=== PATIENT | female | born 1945 | race Two or more races ===

== ENCOUNTER 2017-02-24 20:31 | Inpatient (IN) | payer MEDICARE ==
[~2017-02-24] VITALS: Ht 170.2 cm; Wt 92.1 kg
[2017-02-24] MEDS ORDERED: AZIT250T6 (22:57)
[2017-02-24] MEDS ORDERED: ESCI10TA (22:57)
[2017-02-24] MEDS ORDERED: ESCI20TA (22:57)
[2017-02-24] MEDS ORDERED: GABA-532 (22:57)
[2017-02-24] MEDS ORDERED: CEFD300C3 (22:57)
[2017-02-24] MEDS ORDERED: LOSA100T15 (22:57)
[2017-02-24] MEDS ORDERED: CLON0.5T4 (22:57)
[2017-02-24] MEDS ORDERED: HYDR-3652 (22:57)
[2017-02-24] MEDS ORDERED: CELE-85 (22:57)
[2017-02-24] MEDS ORDERED: DOXE50CA4 (22:57)
[2017-02-24] MEDS ORDERED: DARI15TA7 (22:57)
[2017-02-24] MEDS ORDERED: FLUT16SP16 (22:57)
[2017-02-24 23:00] VITALS: BP 140/65
[2017-02-24] MEDS ORDERED: MAG HYDROX/AL HYDROX/SIMETH 30 ML UDC PO PRN (23:00)
[2017-02-24] MEDS ORDERED: ACETAMINOPHEN 325 MG TABLET PO PRN (23:00)
[2017-02-24] MEDS ORDERED: MAGNESIUM HYDROXIDE 30 ML UDC PO PRN (23:00)
[2017-02-24] MEDS ORDERED: AMLO5TAB2 PO (23:02)
[2017-02-24] MEDS ORDERED: NYST15CR TP (23:02)
[2017-02-24] MEDS ORDERED: IPRATROPIUM NEB FS 0.5 MG/2.5 ML AMPUL.NEB ONE (23:39)
[2017-02-24] MEDS ORDERED: ALBUTEROL FS 2.5 MG/0.5 ML VIAL.NEB ONE (23:39)
[2017-02-24] MEDS: IPRATROPIUM NEB FS 0.5 MG/2.5 ML AMPUL.NEB NEB SCH (23:46)
[2017-02-24] MEDS: ALBUTEROL FS 2.5 MG/0.5 ML VIAL.NEB NEB SCH (23:46)
--- NOTE | 2017-02-25 00:51 | NUR ---
ADMISSION NOTES ADMITTED THIS 71Y/O FEMALE PATIENT DIRECT ADMIT FROM [facility] . PT IS ON 5150 HOLD FOR GD , PER HOLD PT. 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 UPON FACE TO FACE ASSESSMENT PATIENT IS A&O X-1,2 UNCOOPERTIVE ,ANXIOUS ,AGGRESSIVE BEHAVIOR, LOUD HYPERVERBAL , SCREAMING YELLING, VERY PARANOID ,DELUSIONAL BX, PT. NOT FOLLOWING ANY REDIRECTIONS PT. IS POOR HISTORIAN, POOR INSIGHT ,POOR JUDGEMENT ,V/S WNL, NO ACUTE DISTRESS NOTED , HX OF BIPOLAR DISORDER , DEMENTIA,PTSD ,ACUTE KIDNEY INJURY ANEMIA ARTHRITIS COPD ,ACACIA HTN,LUNG ABSCESS,PULMONARY ABSCESS , PULMONARY EMBOLISM ,GERD, HYPERCHOLESTEROLEMIA ,NEUROGENIC BLADDER, SLEEP DIFFIULITIES, MD AWARE AND NOTIFIED OF THE ADMISSION, PT. REFUSED TO SIGNS ON ADMISSION PAPERS,REFUSED SKIN ASSESSMENT, ENCOURAGED PT. VERBALIZED ANY FEELING CONCERN TO STAFF, ORIENT TO UNIT POLICY, WILL CONTINUE TO MONITOR FOR Q15 SAFETY AND BEHAVIOR.
[2017-02-25 02:00] VITALS: BP 135/70
[2017-02-25] MEDS ORDERED: ALBUTEROL FS 2.5 MG/0.5 ML VIAL.NEB ONE (03:28)
[2017-02-25] MEDS ORDERED: IPRATROPIUM NEB FS 0.5 MG/2.5 ML AMPUL.NEB ONE (03:28)
[2017-02-25] MEDS: ALBUTEROL FS 2.5 MG/0.5 ML VIAL.NEB NEB SCH ×5 (03:32→19:30)
[2017-02-25] MEDS: IPRATROPIUM NEB FS 0.5 MG/2.5 ML AMPUL.NEB NEB SCH ×5 (03:32→19:30)
--- NOTE | 2017-02-25 06:29 | NUR ---
GPS RN NOTES DURING SHIFT PT. BEHAVIOR WAS UNCOOPERTIVE AGGRESSIVE ,HYPERVERBAL, RESTORIL AND OFFERED ATIVAN FOR AGGRESSIVE BEHAVIOR , PT. REFUSED TO TAKE , PT. REFUSED SKIN ASSESSMENT FOR ADMISSION PROCESS , AND REFUSED TO SIGN ADMISSION PAPERS, EXPLAINED RISKS AND BENEFITS PT. STILL REFUSED , PT. STATUS I'M FINE, I NO NEED ANY MEDICATION,NO ACUTE DISTRESS NOTED , ENDORSE TO NEXT SHIFT FOR CONTINUITY OF CARE.
--- NOTE | 2017-02-25 06:40 | NUR ---
GPS RN NOTES DURING SHIFT PT. BEHAVIOR WAS UNCOOPERTIVE AGGRESSIVE ,HYPERVERBAL, RESTORIL AND ATIVAN OFFERED FOR AGGRESSIVE BEHAVIOR , PT. REFUSED TO TAKE , PT. REFUSED SKIN ASSESSMENT FOR ADMISSION PROCESS , AND REFUSED TO SIGN ADMISSION PAPERS, EXPLAINED RISKS AND BENEFITS PT. STILL REFUSED , PT. STATUS I'M FINE, I NO NEED ANY MEDICATION,NO ACUTE DISTRESS NOTED , ENDORSE TO NEXT SHIFT FOR CONTINUITY OF CARE.
[2017-02-25 07:10] LABS: BASOPHILS % (AUTO) 0.6 % (0.0-2.0); EOSINOPHILS # (AUTO) 0.4 /CMM (0.0-0.7); EOSINOPHILS % (AUTO) 6.1 % (0.0-6.0); HEMATOCRIT 31 % (33-45); HEMOGLOBIN 10.1 g/dL (11.5-14.8); LYMPHOCYTES # (AUTO) 1.5 /CMM (0.8-4.8); LYMPHOCYTES % (AUTO) 22.7 % (20.0-44.0); MEAN CORPUSCULAR HEMOGLOBIN 28 PG (26.0-33.0); MEAN CORPUSCULAR HGB CONC 33 g/dl (31.0-36.0); MEAN CORPUSCULAR VOLUME 84 fL (82-100); MONOCYTES # (AUTO) 0.4 /CMM (0.1-1.30); MONOCYTES % (AUTO) 5.4 % (2.0-12.0); NEUTROPHILS # (AUTO) 4.4 /CMM (1.8-8.9); NEUTROPHILS % (AUTO) 65.2 % (43.0-81.0); PLATELET COUNT (AUTO) 194 /CMM (150-450); RDW COEFFICIENT OF VARIATION 15.5 (11.5-15.0); RED BLOOD CELL COUNT(AUTO) 3.64 MIL/uL (4.0-5.2); WHITE BLOOD COUNT (AUTO) 6.8 K/uL (4.3-11.0)
[2017-02-25 07:30] LABS: ALANINE AMINOTRANSFERASE 16 U/L (12-78); ALKALINE PHOSPHATASE 86 U/L (46-116); ASPARTATE AMINOTRANSFERASE 18 U/L (15-37); BILIRUBIN,TOTAL 0.4 mg/dL (0.2-1.0); CALCIUM, SERUM 9.5 mg/dL (8.5-10.1); CARBON DIOXIDE 25 mmol/L (21-32); CHLORIDE 113 mmol/L (98-107); CREATININE 1.5 mg/dL (0.6-1.3); GLUCOSE 66 mg/dL (74-106); POTASSIUM 3.8 mmol/L (3.5-5.1); SODIUM SERUM 148 mmol/L (136-145); TOTAL PROTEIN, SERUM 6.7 g/dL (6.4-8.2); UREA NITROGEN, BLOOD 14 mg/dL (7-18)
[2017-02-25 07:32] LABS: CHOLESTEROL 191 mg/dL (<200); HDL CHOLESTEROL 41 mg/dL (40-60); LDL 116 mg/dL (0-99); TRIGLYCERIDES 126 mg/dL (30-150)
[2017-02-25 08:27] VITALS: BP 130/56
[2017-02-25] MEDS ORDERED: LOSA50TA21 PO (09:03)
[2017-02-25] MEDS ORDERED: CLON0.5T4 PO (09:03)
[2017-02-25] MEDS ORDERED: DARI15TA PO (09:03)
[2017-02-25] MEDS ORDERED: CELE200C PO (09:03)
[2017-02-25] MEDS ORDERED: HYDR-3652 PO (09:03)
[2017-02-25] MEDS ORDERED: GABA-532 PO (09:03)
[2017-02-25] MEDS ORDERED: DOXE50CA4 PO (09:03)
[2017-02-25] MEDS ORDERED: ESCI20TA PO (09:03)
--- NOTE | 2017-02-25 11:19 | NUR ---
RT NO ARMBAND SCANNED INFORMED RN NO, PT REMOVING IT
[2017-02-25 16:00] VITALS: BP 133/81
[2017-02-25] MEDS ORDERED: clonazePAM 0.5 MG TABLET PO PRN (16:00)
[2017-02-25] MEDS: GABAPENTIN 100 MG CAPSULE PO SCH (16:56)
[2017-02-25] MEDS: OLANZAPINE 5 MG/TAB.RAPDIS PO SCH (16:57)
[2017-02-25 20:06] VITALS: BP 154/56
[2017-02-25] MEDS: DIVALPROEX SODIUM 250 MG TABLET.DR PO SCH (22:03)
[2017-02-25] MEDS: DOXEPIN HCL 10 MG CAPSULE PO SCH (22:03)
[2017-02-26] MEDS: IPRATROPIUM NEB FS 0.5 MG/2.5 ML AMPUL.NEB NEB SCH ×7 (00:12→23:06)
[2017-02-26] MEDS: ALBUTEROL FS 2.5 MG/0.5 ML VIAL.NEB NEB SCH ×7 (00:12→23:06)
[2017-02-26 08:28] VITALS: BP 148/81
[2017-02-26] MEDS: DIVALPROEX SODIUM 250 MG TABLET.DR PO SCH ×2 (10:43→21:00)
[2017-02-26] MEDS: OLANZAPINE 5 MG/TAB.RAPDIS PO SCH ×2 (10:43→17:15)
[2017-02-26] MEDS: ESCITALOPRAM OXALATE (10 MG) 10 MG TABLET PO SCH (10:43)
[2017-02-26] MEDS: GABAPENTIN 100 MG CAPSULE PO SCH ×2 (10:43→17:15)
[2017-02-26] MEDS: CELECOXIB 100 MG CAPSULE PO SCH (10:44)
[2017-02-26] MEDS: LOSARTAN POTASSIUM 50 MG TABLET PO SCH (10:44)
--- NOTE | 2017-02-26 14:47 | NUR ---
GPS/RN NOTES PATIENT IN HER ROOM INTERMITTENTLY SLEEPING. NO ACUTE DISTRESS NOTED.ENDORSED TO CHARGE NURSE FOR CONTINUITY OF CARE
[2017-02-26 16:27] VITALS: BP 123/71
[2017-02-26 19:43] VITALS: BP 133/76
--- NOTE | 2017-02-26 21:00 | NUR ---
GPS RN NOTES: PATIENT REFUSED SCHEDULED MED DEPAKOTE 250MG, DESPITE EXPLANATION OF RISKS AND BENEFITS. PATIENT STATED I DON'T WANNA TAKE DEPAKOTE MY DREAMS KEEPS REPEATING AND REPEATING. OFFERED 3X BUT PT STRONGLY REFUSED. RESPECTED PT'S RIGHT. WILL CONTINUE TO MONITOR.
[2017-02-26] MEDS: DOXEPIN HCL 10 MG CAPSULE PO SCH (21:01)
[2017-02-26] MEDS: TEMAZEPAM 7.5 MG CAPSULE PO PRN (22:20)
[2017-02-26] MEDS: HYDROCODONE/APAP 5/325MG 1 EACH TABLET PO PRN (23:41)
[2017-02-27] MEDS: IPRATROPIUM NEB FS 0.5 MG/2.5 ML AMPUL.NEB NEB SCH ×6 (02:59→23:20)
[2017-02-27] MEDS: ALBUTEROL FS 2.5 MG/0.5 ML VIAL.NEB NEB SCH ×6 (02:59→23:20)
[2017-02-27 08:43] VITALS: BP 180/90
[2017-02-27] MEDS: ESCITALOPRAM OXALATE (10 MG) 10 MG TABLET PO SCH ×2 (09:00→09:33)
[2017-02-27] MEDS: LOSARTAN POTASSIUM 50 MG TABLET PO SCH ×2 (09:00→09:32)
[2017-02-27] MEDS: GABAPENTIN 100 MG CAPSULE PO SCH ×3 (09:00→17:00)
[2017-02-27] MEDS: DIVALPROEX SODIUM 250 MG TABLET.DR PO SCH ×2 (09:00→09:33)
[2017-02-27] MEDS: CELECOXIB 100 MG CAPSULE PO SCH ×2 (09:00→09:32)
[2017-02-27] MEDS: OLANZAPINE 5 MG/TAB.RAPDIS PO SCH ×2 (09:00→09:33)
--- NOTE | 2017-02-27 11:57 | NUR ---
Initial Discharge Plan: Pt resides at [address] [place] [address] Dr. Krishnamurthy, [place] [address]; and would like to return home upon discharge, however would like to move to [facility]. Pt reported not liking her current living situation due to the "unintelligent tenants." SW will follow up and ensure pt is properly and safely discharged.
[2017-02-27 15:56] VITALS: BP 115/65
[2017-02-27] MEDS: QUETIAPINE FUMARATE 25 MG TABLET PO SCH (17:39)
[2017-02-27 20:38] VITALS: BP 142/87
[2017-02-27] MEDS: TEMAZEPAM 7.5 MG CAPSULE PO PRN (21:44)
[2017-02-27] MEDS: QUETIAPINE FUMARATE 100 MG TABLET PO SCH (22:09)
[2017-02-27] MEDS: DOXEPIN HCL 10 MG CAPSULE PO SCH (22:09)
--- NOTE | 2017-02-27 23:38 | NUR ---
GPS RN NOTES: PATIENT REQUESTED FOR HYDROCODONE, PATIENT C/O LEFT SHOULDER PAIN. OFFERED NORCO 5/325MG PO PRN ORDER. BUT PATIENT REFUSED TO TAKE MEDICATION DESPITE OF RISKS AND EXPLANATION PROVIDED. PATIENT STATED I DON'T WANNA TAKE IT. CHARGE NURSE MADE AWARE. WILL CONTINUE TO MONITOR AND ASSESS FOR ANY PAIN OR DISCOMFORT.
[2017-02-27] MEDS: HYDROCODONE/APAP 5/325MG 1 EACH TABLET PO PRN (23:58)
[2017-02-28] MEDS: ALBUTEROL FS 2.5 MG/0.5 ML VIAL.NEB NEB SCH ×6 (03:45→23:30)
[2017-02-28] MEDS: IPRATROPIUM NEB FS 0.5 MG/2.5 ML AMPUL.NEB NEB SCH ×6 (03:45→23:30)
[2017-02-28] MEDS: HYDROCODONE/APAP 5/325MG 1 EACH TABLET PO PRN (04:22)
[2017-02-28] MEDS: LOSARTAN POTASSIUM 50 MG TABLET PO SCH ×2 (09:00→10:07)
[2017-02-28] MEDS: QUETIAPINE FUMARATE 25 MG TABLET PO SCH ×3 (09:00→16:14)
[2017-02-28] MEDS: CELECOXIB 100 MG CAPSULE PO SCH ×2 (09:00→10:07)
[2017-02-28] MEDS: ESCITALOPRAM OXALATE (10 MG) 10 MG TABLET PO SCH ×2 (09:00→10:06)
[2017-02-28] MEDS: GABAPENTIN 100 MG CAPSULE PO SCH ×3 (09:00→16:14)
[2017-02-28 09:49] VITALS: BP 123/66
--- NOTE | 2017-02-28 10:56 | NUR ---
GPS/RN-NOTES PATIENT REFUSED ALL 0900AM MEDICATIONS DESPITE EXPLANATIONS RISK AND BENEFITS. STATED" LEAVE ME ALONE I DON'T WANT TO TAKE ANY MEDICATIONS". OFFERED X3 BUT PATIENT GETS ANGRY AT THE JOB CHANGE CREW MEMBER.
[2017-02-28 16:09] VITALS: BP 115/59
--- NOTE | 2017-02-28 19:57 | NUR ---
RT PT REFUSED TX. PT IS EATING AT THE MOMENT. NO SOB OR DISTRESS NOTED AT THIS TIME. WILL ATTEMPT AGAIN AT NEXT SCHEDULED TX.
[2017-02-28 20:00] VITALS: BP 147/97
--- NOTE | 2017-02-28 20:53 | NUR ---
GPS/RN NOTE: PATIENT REQUESTING FOR HER ENABLEX PILL FOR URINARY INCONTINENCE. PAGED AND SPOKE TO DR. THOMPSON. SAID THAT IT MIGHT NOT BE AVAILABLE AT THE PHARMACY. SPOKE TO PHARMACIST, SAID THAT WE DO NOT CARRY ENABLEX. SUBSTITUTE IS VESICARE 5 MG PO DAILY. INFORMED PATIENT THAT WE DO NOT CARRY IT. PATIENT STATED THAT VESICARE IS NOT THE SAME ENABLEX.
[2017-02-28] MEDS: DOXEPIN HCL 10 MG CAPSULE PO SCH (22:00)
[2017-02-28] MEDS: QUETIAPINE FUMARATE 100 MG TABLET PO SCH (22:00)
--- NOTE | 2017-02-28 22:14 | NUR ---
GPS/RN NOTE: PATIENT REFUSED HER SEROQUEL 12.5 MG TONIGHT. VERY CONFUSED AND NONCOMPLIANT WITH HER CARE. Addendum: 02/28/17 at 2218 by DASHAWN KAMARA RN PATIENT REFUSED HER SEROQUEL 50 MG TAB PO. ABOVE NOTE, USER ERROR.
[2017-03-01] MEDS: IPRATROPIUM NEB FS 0.5 MG/2.5 ML AMPUL.NEB NEB SCH ×5 (03:32→19:30)
[2017-03-01] MEDS: ALBUTEROL FS 2.5 MG/0.5 ML VIAL.NEB NEB SCH ×5 (03:32→20:30)
--- NOTE | 2017-03-01 03:33 | NUR ---
RT PT HAS NO WRIST BAND DUE TO PT RIPPING IT OF PER RN. TX MEDS NOT SCANNED BUT GIVEN.
--- NOTE | 2017-03-01 04:00 | NUR ---
GPS/RN NOTE: PATIENT AWAKE, WAS OFFERED ATIVAN 2X, PATIENT REFUSED. STATED THAT SHE IS NOT ANXIOUS.
[2017-03-01 08:00] VITALS: BP 161/89
[2017-03-01] MEDS: ESCITALOPRAM OXALATE (10 MG) 10 MG TABLET PO SCH (08:10)
[2017-03-01] MEDS: QUETIAPINE FUMARATE 25 MG TABLET PO SCH ×2 (08:10→16:49)
[2017-03-01] MEDS: CELECOXIB 100 MG CAPSULE PO SCH (08:10)
[2017-03-01] MEDS: GABAPENTIN 100 MG CAPSULE PO SCH ×2 (08:10→16:49)
[2017-03-01] MEDS: LOSARTAN POTASSIUM 50 MG TABLET PO SCH (08:11)
[2017-03-01 10:00] VITALS: BP 110/70
--- NOTE | 2017-03-01 10:12 | NUR ---
FISH spoke with Saúl Ibarra from [facility]; for discharge planning purposes. SW to continue discussing pts discharge plans with [facility] to provide continuity of care once pt is discharged. Per Stacey, if pt is currently being seen by a psychiatrist (outside [facility]), it would be best to link her to her attending psychiatrist, due to the scarcity of MH services in [place]. [facility] also reported facilitating transportation was pt is discharged. FISH will continue to follow to ensure pt is properly discharged.
[2017-03-01 16:00] VITALS: BP 128/70
[2017-03-01] MEDS: HYDROCODONE/APAP 5/325MG 1 EACH TABLET PO PRN (17:09)
--- NOTE | 2017-03-01 18:34 | NUR ---
RN Note: 3598 hydrocodone was given for pain.
[2017-03-01] MEDS: DOXEPIN HCL 10 MG CAPSULE PO SCH (21:27)
[2017-03-01] MEDS: QUETIAPINE FUMARATE 100 MG TABLET PO SCH (21:28)
[2017-03-02] MEDS: IPRATROPIUM NEB FS 0.5 MG/2.5 ML AMPUL.NEB NEB SCH ×7 (00:16→22:44)
[2017-03-02] MEDS: ALBUTEROL FS 2.5 MG/0.5 ML VIAL.NEB NEB SCH ×7 (00:16→22:45)
[2017-03-02] MEDS: HYDROCODONE/APAP 5/325MG 1 EACH TABLET PO PRN (00:35)
[2017-03-02] MEDS: LORAZEPAM 0.5 MG TABLET PO PRN (04:59)
[2017-03-02 08:00] VITALS: BP 106/68
[2017-03-02] MEDS: LOSARTAN POTASSIUM 50 MG TABLET PO SCH (08:47)
[2017-03-02] MEDS: QUETIAPINE FUMARATE 25 MG TABLET PO SCH ×2 (08:48→16:10)
[2017-03-02] MEDS: GABAPENTIN 100 MG CAPSULE PO SCH ×2 (08:48→16:10)
[2017-03-02] MEDS: ESCITALOPRAM OXALATE (10 MG) 10 MG TABLET PO SCH (08:48)
[2017-03-02] MEDS: CELECOXIB 100 MG CAPSULE PO SCH (08:48)
[2017-03-02 15:42] VITALS: BP 125/60
[2017-03-02 20:00] VITALS: BP 116/55
--- NOTE | 2017-03-02 21:00 | NUR ---
GPS RN NOTE: PATIENT NOTED TO BE SARCASTIC, HYPERVERBAL, VERBALLY AGGRESSIVE AND DEMANDING. ASKED FOR PAIN MEDICATION HYDROCODONE APAP BUT REFUSED NORCO. EXPLAIN TO THE PATIENT THAT NORCO IS HYDROCODONE AND PATIENT INSISTED THAT SHE IS HAVING ITCHINESS WHEN SHE TAKES NORCO BUT NOT HYDROCODONE. PATIENT ALSO WANTS TO TALK TO HER PSYCHIATRIST. EXPLAINED TO THE PATIENT THAT SHE WILL TALK TO HER PSYCHIATRIST TOMORROW. Addendum: 03/02/17 at 2140 by HECTOR MARROQUIN II, RN TRIED REDIRECTING THE PATIENT. OFFERED SANDWICH AND JUICE BUT PATIENT REFUSED.
--- NOTE | 2017-03-02 21:30 | NUR ---
GPS RN NOTE: PATIENT QUIET, CALM, REFUSED DOXEPIN AND SEROQUEL MEDICATION, EXPLAINED THE RISK AND BENEFITS BUT PATIENT STILL REFUSED X 2 ATTEMPTS. WILL CONTINUE TO MONITOR
--- NOTE | 2017-03-02 23:15 | NUR ---
GPS RN NOTE: PATIENT ASKED FOR HER NIGHT MEDS GIVEN ORDERED. WILL CONTINUE TO MONITOR
[2017-03-02] MEDS: DOXEPIN HCL 10 MG CAPSULE PO SCH (23:32)
[2017-03-02] MEDS: QUETIAPINE FUMARATE 100 MG TABLET PO SCH (23:32)
--- NOTE | 2017-03-03 03:00 | NUR ---
SOD-AP-XFANR: PT IS OBSERVED TO BE ANXIOUS, RESTLESS, IRRITABLE, UNCOOPERATIVE WITH STAFF, UNABLE TO FOLLOW DIRECTIONS, ACCUSATORY TOWARDS STAFF, UNABLE TO FOLLOW DIRECTIVES, MANIPULATIVE. ESCORTED PT TO THE DAY-ROOM, DISTURBING THE NURSING STATION, NON-REDIRECTABLE. PT SAT IN GERICHAIR IN THE DAYROOM.
[2017-03-03] MEDS: ALBUTEROL FS 2.5 MG/0.5 ML VIAL.NEB NEB SCH ×6 (03:25→23:01)
[2017-03-03] MEDS: IPRATROPIUM NEB FS 0.5 MG/2.5 ML AMPUL.NEB NEB SCH ×6 (03:26→23:01)
--- NOTE | 2017-03-03 04:00 | NUR ---
GPS RN NOTE: PATIENT NOTED FOR BEING VERBALLY AGGRESSIVE, DEMANDING, DELUSIONAL AND WANTED TO TALK TO HER PSYCHIATRIST. PATIENT C/O PAIN, HYDROCODONE GIVEN ORDERED, C/O BEING ANXIOUS, ATIVAN GIVEN ORDERED. REDIRECTED THE PATIENT AND PATIENT CALM DOWN. WILL CONTINUE TO MONITOR [id number] FOR SAFETY
[2017-03-03] MEDS: HYDROCODONE/APAP 5/325MG 1 EACH TABLET PO PRN (04:28)
[2017-03-03] MEDS: LORAZEPAM 0.5 MG TABLET PO PRN (04:36)
--- NOTE | 2017-03-03 07:17 | NUR ---
GPS RN NOTE: PATIENT NOTED FOR HAVING MULTIPLE C/O PAIN ON RIGHT SHOULDER AND RIGHT WRIST. AND ACCUSING THE STAFF NOT HANDLING HER GENTLY. NORCO WAS GIVEN, WARM PACK APPLIED REQUESTED, ATIVAN WAS GIVEN REQUESTED. NOTIFIED NURSE AIDE EVALUATOR JENN LIVINGSTON OF THE EPISODE. WILL CONTINUE TO MONITOR AND WILL ENDORSE TO THE NEXT SHIFT TO CONTINUE TO MONITOR
[2017-03-03] MEDS: GABAPENTIN 100 MG CAPSULE PO SCH ×2 (08:07→17:42)
[2017-03-03] MEDS: CELECOXIB 100 MG CAPSULE PO SCH (08:07)
[2017-03-03] MEDS: QUETIAPINE FUMARATE 25 MG TABLET PO SCH ×2 (08:07→17:42)
[2017-03-03] MEDS: ESCITALOPRAM OXALATE (10 MG) 10 MG TABLET PO SCH (08:07)
[2017-03-03] MEDS: LOSARTAN POTASSIUM 50 MG TABLET PO SCH (08:08)
[2017-03-03 08:26] VITALS: BP 150/72
--- NOTE | 2017-03-03 10:00 | NUR ---
GPS/RN-NOTES PATIENT CLAIMING NIGHT STAFFS GRAB HER BY HER BOTH ARMS LAST NIGHT CLAIMING HER LEFT SHOULDER HURTS. REFUSED BODY ASSESSMENTS. PATIENT ABLE TO MOVED AND RAISED BOTH ARMS WITHOUT ANY DISCOMFORT AT THIS TIME.
--- NOTE | 2017-03-03 10:01 | NUR ---
GPS/RN-NOTES PATIENT C/O LEFT SHOULDER PAIN AND REQUESTING FOR PAIN MEDICATIONS. OFFERED TYLENOL FOR A BREK THROUGH BUT REFUSED. EXPLAINED NORCO WAS NOT DUE YET BUT PATIENT STATED" I DON'T NEED ANYTHING THEN". OFFERED X3 .
--- NOTE | 2017-03-03 13:10 | NUR ---
GPS/RN-NOTES DR. EMMETT SALES SEEN THE PATIENT WITH THE ORDER TO CHANGE FREQUENCY TO Q 6PRN. NOTED AND CARRIED OUT.
[2017-03-03] MEDS ORDERED: HYDROCODONE/APAP 5/325MG 1 EACH TABLET PO PRN (13:30)
[2017-03-03 16:01] VITALS: BP 131/56
--- NOTE | 2017-03-03 18:00 | NUR ---
GPS/RN-NOTES PATIENT STILL REFUSED BODY ASSESSMENTS.
--- NOTE | 2017-03-03 18:39 | NUR ---
GPS/RN-NOTES NOTED PATIENT WITH HYPERVERBAL,DEMANDING AND ARGUMENTATIVE WITH THE STAFF. PATIENT CLAIMING THAT NO MD SEEN HER TODAY DESPITE SAND MILL OPERATOR FACING SAND AND PSYCHIATRIST SEEN HER TODAY.REFUSED CARE DESPITE ENCOURAGEMENT. OFFERED ATIVAN BUT REFUSED. STATED" GIVE ME PAIN MEDICATIONS NOT ATIVAN". NORCO 5MG/325MG 1 TAB. P.O GIVEN PRN ORDER. WILL CONT. 1:1 MONITORING FOR SAFETY AND BEHAVIOR.WILL ENDORSE TO INCOMING NURSE FOR CONTINUITY OF CARE.
--- NOTE | 2017-03-03 18:48 | NUR ---
GPS/RN-NOTES DR. JARAMILLO COVERING FOR DR. MUOR TODAY SEEN THE PATIENT WITH VERBAL ORDER TO DISCONTINUE KLONOPIN 0.5MG P.O. NOTED AND CARRIED OUT.
[2017-03-03 20:18] VITALS: BP 113/62
[2017-03-03] MEDS: DOXEPIN HCL 10 MG CAPSULE PO SCH (21:24)
[2017-03-03] MEDS: QUETIAPINE FUMARATE 100 MG TABLET PO SCH (21:24)
[2017-03-04] MEDS: LORAZEPAM 0.5 MG TABLET PO PRN (03:19)
[2017-03-04] MEDS: IPRATROPIUM NEB FS 0.5 MG/2.5 ML AMPUL.NEB NEB SCH ×6 (03:30→23:48)
[2017-03-04] MEDS: ALBUTEROL FS 2.5 MG/0.5 ML VIAL.NEB NEB SCH ×6 (03:30→23:48)
--- NOTE | 2017-03-04 05:00 | NUR ---
GPS RN NOTES PT. REFUSED SKIN REASSEMENT, ENCOURGED STILL REFUSED ,EXPLAINED RISKS AND BENEFITS STILL REFUSED, PT DELUSIONAL HYPERVERVAL NOT FOLLOWING REDIRECTION .
--- NOTE | 2017-03-04 06:13 | NUR ---
GPS RN NOTES PT. COMFORTABLY RESTING AT THIS TIME NO ACUTE DISTRESS NOTED, 1:1 SITTER AT BED SITE FOR PT. SAFETY,. ENDORSE TO NEXT SHIFT FOR CONTINUTY OF CARE .
[2017-03-04 08:17] VITALS: BP 116/90
[2017-03-04] MEDS: QUETIAPINE FUMARATE 25 MG TABLET PO SCH ×2 (09:03→16:44)
[2017-03-04] MEDS: LOSARTAN POTASSIUM 50 MG TABLET PO SCH (09:04)
[2017-03-04] MEDS: CELECOXIB 100 MG CAPSULE PO SCH (09:05)
[2017-03-04] MEDS: GABAPENTIN 100 MG CAPSULE PO SCH ×2 (09:05→16:44)
[2017-03-04] MEDS: ESCITALOPRAM OXALATE (10 MG) 10 MG TABLET PO SCH (09:06)
--- NOTE | 2017-03-04 14:39 | NUR ---
Discharge Planning: SW spoke to pt for discharge planning purposes. SW discussed various options with client (i.e. SNIFFS, Assisted Living Facilities, Board and Care) as a means to help pt get back on her feet. SW explained how SNIFF facilities can help with her rehabilitation needs. Pt was adamant and stated, "Oh no I won't be going to any of those places, I want to go home." Pt became increasingly angrily and asked several times to be discharged home. Pt refused referrals for residential facilities. Pt however was receptive to in home health services. SW will follow up to ensure pt is properly linked to support services upon her discharge. FISH will follow up to ensure pt is properly discharged.
--- NOTE | 2017-03-04 15:18 | NUR ---
Discharge Planning: FISH spoke to Stacey, , [facility] Liaison to arrange for transportation for tomorrow, 03/05/17 for pt. [place] transportation requires 24 hr. day in advance. Per Stacey, she will check and confirm that pt can be picked up tomorrow. Pending transportation confirmation. FISH will follow up to ensure pt is properly discharged.
[2017-03-04 16:18] VITALS: BP 138/72
--- NOTE | 2017-03-04 16:42 | NUR ---
Discharge Planning: FISH contacted Mary Duran, (pts person to notify found on face sheet who is her medical doctor) for linkage purposes. Per phone message, Mary Duran has since retired. FISH will follow up to ensure pt is referred to an legal associate upon discharge.
--- NOTE | 2017-03-04 17:32 | NUR ---
GPS/RN-NOTES PATIENT HYPERVERBAL,DEMANDING ARGUMENTATIVE WITH THE STAFF EASILY AGITATED.PT REFUSED TO EAT DINNER ,REFUSED CARE. WILL CONTINUE MONITORING FOR SAFETY AND BEHAVIOR.WILL ENDORSE TO INCOMING NURSE FOR CONTINUITY OF CARE
--- NOTE | 2017-03-04 18:12 | NUR ---
GPS RN NOTE: PT COMPLAINING OF LOWER BACK PAIN NORCO 5MG/325MG 1 TAB. P.O GIVEN PRN ORDER. WILL CONT.MONITORING
[2017-03-04 21:02] VITALS: BP 139/77
[2017-03-04] MEDS: QUETIAPINE FUMARATE 100 MG TABLET PO SCH (21:29)
[2017-03-04] MEDS: DOXEPIN HCL 10 MG CAPSULE PO SCH (21:29)
[2017-03-05] MEDS: LORAZEPAM 0.5 MG TABLET PO PRN (01:39)
[2017-03-05] MEDS: IPRATROPIUM NEB FS 0.5 MG/2.5 ML AMPUL.NEB NEB SCH ×4 (03:51→10:47)
[2017-03-05] MEDS: ALBUTEROL FS 2.5 MG/0.5 ML VIAL.NEB NEB SCH ×4 (03:51→10:47)
[2017-03-05 08:00] VITALS: BP 150/93
[2017-03-05] MEDS: GABAPENTIN 100 MG CAPSULE PO SCH (08:33)
[2017-03-05] MEDS: QUETIAPINE FUMARATE 25 MG TABLET PO SCH (08:33)
[2017-03-05] MEDS: CELECOXIB 100 MG CAPSULE PO SCH (08:33)
[2017-03-05] MEDS: ESCITALOPRAM OXALATE (10 MG) 10 MG TABLET PO SCH (08:33)
[2017-03-05 08:35] VITALS: BP 150/93
[2017-03-05] MEDS: LOSARTAN POTASSIUM 50 MG TABLET PO SCH (08:35)
--- NOTE | 2017-03-05 09:29 | NUR ---
Discharge Planning: On day of discharge, patient stated that she did not want to leave the hospital and that her apartment was undergoing remodeling and was not ready. FISH spoke to Cindy from [facility] located at [address] [place] [address] [place] [address] who verified that patient's apartment is ready. Cindy stated that the coreen has been finished and that patient is able to safely return to the apartment.
--- NOTE | 2017-03-05 11:00 | NUR ---
RT NOTE: LATE ENTRY-PATIENT REFUSED SCHEDULED TREATMENT. PATIENT WAS INSTRUCTED TO TELL THE NURSE IF SHE WANTS HER TREATMENT AT ANYTIME. I WILL FOLLOW UP WITH HER AT HER NEXT SCHEDULED TREATMENT TIME. PATIENT IS VERY UPSET AND COMPLAINING ABOUT HER CARE AT THIS HOSPITAL AND [place]. NURSE IS AWARE.
--- NOTE | 2017-03-05 11:30 | NUR ---
GPS/RN PATIENT CLEARED FOR DISCHARGE HOME/INDEPENDENT LIVING BY DR MURO AND DR PARK. MEDICATIONS RECONCILED BY BOTH DRS, PRESCRIPTIONS, EXIT CARE AND AFTER CARE PLAN EXPLAINED TO PATIENT VERBALIZED UNDERSTANDING. WHEN ASKED PATIENT TO PROVIDE PHARMACY, PATIENT REFUSED TO GIVE PHARMACY INFORMATION AND RN EXPLAINED RISKS AND BENEFITS OF NOT PROVIDING INFORMATION. PATIENT REFUSED TO SIGN ALL PAPERWORK, ADAMANTLY REFUSED SKIN ASSESSMENT X 3, EXPLAINED RISKS AND BENEFITS. PATIENT WAS ENCOURAGED BY TIPPLE WORKER AND STAFF FOR POSSIBLE PLACEMENT TO SNF BUT PATIENT ADAMANTLY REFUSED.PATIENT DENIES SI/HI UPON DISCHARGE, PSYCHIATRIC TREATMENT PLANS MET. LEFT UNIT CALM, NO AGITATION WITH BONE PULLER AND TRANSPORT AT SIDE.
--- NOTE | 2017-03-05 12:11 | NUR ---
Discharge Planning: FISH faxed [facility] and fax # pts physician's order for home health services. FISH faxed attention to Eunice Lagos, [facility]. FISH also provided Ms. Lagos with pts home address and discharge date/time. Per, Ms. Lagos an attempt will be made to pts home on 03/06/17 as well as a telephone call to pts # .
--- NOTE | 2017-03-05 12:21 | NUR ---
Discharge Note: Patient will be discharged home/Independent Living Facility, [address] [place] [address] [place] [address] via ambulance arranged through [employer] [facility], at 11am. Pt has been informed and is in agreement. Patient will follow up with [facility], [address] [place] [address]. [place] [address]; [phone] and fax # for psychiatric services (resource provided by [facility] Liaison for [facility]). Pt was also referred to Dr. Jake Dial MD , [address] [place] [address] for medical services.
--- NOTE | 2017-03-05 16:59 | NUR ---
SW filed an online Adult Protective Report for this pt on today's date. (Intake [id number]).
== END 2017-03-05 13:08 | disposition home or self-care (01) | DRG 885 ==
LOC: GPS 22:12
PROVIDERS: ADMIT Psychiatry & Neurology Psychiatry; ATTEND Internal Medicine
DX: F31.2 Bipolar disorder, current episode manic severe with psychotic features (principal); N17.0 Acute kidney failure with tubular necrosis; N18.9 Chronic kidney disease, unspecified; E88.09 Other disorders of plasma-protein metabolism, not elsewhere classified; D64.9 Anemia, unspecified; E86.0 Dehydration; E78.5 Hyperlipidemia, unspecified; E66.9 Obesity, unspecified; F03.90 Unspecified dementia, unspecified severity, without behavioral disturbance, psychotic disturbance, mood disturbance, and anxiety; F29 Unspecified psychosis not due to a substance or known physiological condition; G47.00 Insomnia, unspecified; J44.9 Chronic obstructive pulmonary disease, unspecified; K21.9 Gastro-esophageal reflux disease without esophagitis; M19.90 Unspecified osteoarthritis, unspecified site; I12.9 Hypertensive chronic kidney disease with stage 1 through stage 4 chronic kidney disease, or unspecified chronic kidney disease; Z86.711 Personal history of pulmonary embolism; N31.9 Neuromuscular dysfunction of bladder, unspecified; E16.2 Hypoglycemia, unspecified; Z73.6 Limitation of activities due to disability; Z68.31 Body mass index [BMI] 31.0-31.9, adult
CPT/HCPCS: 36415; 80053-TC; 80061-TC; 85025-TC; 87081-TC; 97116-TC; 97530-TC